=== PATIENT | female | born 1985 | race Caucasian/White ===

== ENCOUNTER 2016-04-26 10:08 | Emergency (ER) | payer OTHER ==
--- NOTE | 2016-04-26 11:35 | ER Document Report ---
ED General - General Information source: Patient TRAVEL OUTSIDE OF THE U.S. IN LAST 30 DAYS: No - HPI Patient complains to provider of: Endometriosis Pain Onset: This morning Associated symptoms: None - General Chief Complaint: Pelvic Pain Stated Complaint: PELVIC PAIN Notes: Patient is a 30-year-old female presenting to the emergency department concerned of endometriosis pain. Patient was diagnosed 10 years ago with endometriosis, and she has recently moved to [place] from [place] running out of her medicine. Patient takes Ultram for her pain. Patient is scheduled to see [facility] in April. Patient was able to get twice after laparoscopic surgery 3 years ago, and she has 2 healthy children 14 months apart. Patient has been trying to get again ever since, and she finally did get , but she had a miscarriage one and a half months ago. Patient denies having any history of seizures. ([employer]) - Related Data Allergies/Adverse Reactions: No Known Allergies Allergy (Unverified 04/26/16 11:14) Past Medical History - General Information source: Patient - Social History Smoking Status: Never Smoker Chew tobacco use (# tins/day): No Lives with: Family Family History: Reviewed & Not Pertinent Patient has suicidal ideation: No Patient has homicidal ideation: No Renal/ Medical History: Reports: Other - Endometriosis Past Surgical History: Reports: Other - Laparoscopic surgery for endometriosis Review of Systems - Review of Systems Constitutional: No symptoms reported EENT: No symptoms reported Cardiovascular: No symptoms reported Respiratory: No symptoms reported Gastrointestinal: No symptoms reported Genitourinary: No symptoms reported Female Genitourinary: See HPI, Heavy/abnormal periods - Endometrial Pain Musculoskeletal: No symptoms reported Skin: No symptoms reported Hematologic/Lymphatic: No symptoms reported Neurological/Psychological: No symptoms reported -: Yes All other systems reviewed and negative Physical Exam - Vital signs Interpretation: Normal - General General appearance: Appears well, Alert - HEENT Head: Normocephalic, Atraumatic Eyes: Normal Pupils: PERRL - Respiratory Respiratory status: No respiratory distress Chest status: Nontender Breath sounds: Normal Chest palpation: Normal - Cardiovascular Rhythm: Regular Heart sounds: Normal auscultation Murmur: No - Abdominal Inspection: Normal Distension: No distension Bowel sounds: Normal Tenderness: Nontender Organomegaly: No organomegaly - Back Back: Normal, Nontender - Extremities General upper extremity: Normal inspection, Nontender, Normal color, Normal ROM , Normal temperature General lower extremity: Normal inspection, Nontender, Normal color, Normal ROM , Normal temperature, Normal weight bearing - Neurological Neuro grossly intact: Yes Cognition: Normal Orientation: AAOx4 Adri[place] Coma Scale Eye Opening: Spontaneous [place] Coma Scale Verbal: Oriented [place] Coma Scale Motor: Obeys Commands [place] Coma Scale Total: 15 Speech: Normal - Psychological Associated symptoms: Normal affect, Normal mood - Skin Skin Temperature: Warm Skin Moisture: Dry Skin Color: Normal Course - Re-evaluation Re-evalutation: 04/26/16 13:01 I personally performed the services described in the documentation, reviewed and edited the documentation which was dictated to my scribe in my presence, and it accurately records my words and actions. Elroy seen and evaluated has a long-standing history of endometriosis recently moved here has been taking Ultram intermittently for a couple years. Says it accept when she gets on her menstrual cycle which she is on. States that they normally give her Ultram she does have an appointment here in [place] on the 18 of this month. She denies any heavy or bleeding than usual is not no urinary tract infection no acute abdominal guarding rebound rigidity. I'm comfortable giving her a one-time prescription for Ultram to get her through return appointment as she is not an abuser and its appropriate use of the medication. She does not have a history of a seizure disorder we'll DC follow up with ENVIRONMENTAL FIELD TEAM MEMBER as scheduled and discuss reasons for ED return sooner ( [facility]ABIO CAT) - Laboratory Laboratory results interpreted by me: 04/26/16 11:35 Urine Blood LARGE H (FABIO CAT) Discharge - Discharge Clinical Impression: Pelvic pain, History of endometriosis Condition: Stable Disposition: HOME, SELF-CARE Instructions: Pelvic Pain ([facility]) Prescriptions: Tramadol HCl [Ultram 50 mg Tablet] 50 mg PO Q4HP PRN #12 tab PRN Reason: Referrals: NATALIE HELMS MD [Primary Care Provider] - Follow up as needed (As scheduled return to emergency from for increasing worsening or new symptoms)
[2016-04-26 11:50] LABS: APPEARANCE,URINE CLEAR; BILIRUBIN,URINE NEGATIVE (NEGATIVE); GLUCOSE, URINE NEGATIVE (NEGATIVE); KETONES,URINE NEGATIVE (NEGATIVE); LEUKOCYTE ESTERASE,URINE NEGATIVE (NEGATIVE); NITRITE,URINE NEGATIVE (NEGATIVE); PROTEIN,URINE NEGATIVE (NEGATIVE); URINE SPECIFIC GRAVITY 1.009; UROBILINOGEN,URINE NEGATIVE mg/dL (<2.0)
[2016-04-26 13:13] VITALS: BP 130/65
== END 2016-04-26 13:13 | disposition home or self-care (01) ==
LOC: ER 10:08
DX: N80.9 Endometriosis, unspecified (principal); R10.2 Pelvic and perineal pain; Z98.890 Other specified postprocedural states; Z87.59 Personal history of other complications of pregnancy, childbirth and the puerperium
CPT/HCPCS: 81001; 81025; 99284

== ENCOUNTER 2016-07-13 07:46 | Emergency (ER) | payer OTHER ==
[2016-07-13] MEDS ORDERED: NORMAL SALINE 1000 ML 1,000 ML IV ONE ×2 (08:19→09:31)
[2016-07-13] MEDS ORDERED: DIPHENHYDRAMINE HCL 50 MG/ML VIAL IV ONE (08:19)
--- NOTE | 2016-07-13 08:20 | ER Document Report ---
ED GI/ - General Chief Complaint: Nausea/Vomiting Stated Complaint: VOMITING Mode of Arrival: Ambulatory Information source: Patient Notes: Patient is currently about 6 weeks but has not had ultrasound to confirm the . Patient is . Patient reports nausea and vomiting for the past 10 days and reports lower pelvic pain since about 3:30 today. Patient denies any urinary symptoms, vaginal bleeding, or vaginal discharge. Patient is concerned that she is losing weight and is dehydrated. TRAVEL OUTSIDE OF THE U.S. IN LAST 30 DAYS: No - HPI Patient complains to provider of: Pelvic pain, , Vomiting. No: Diarrhea , Vaginal discharge Onset: Other - 10 days Timing/Duration: Persistent Quality of pain: Cramping Pain Level: 3 Location: Pelvis Vaginal bleeding (Compared to normal period): None Sexual history: Active Associated symptoms: Loss of appetite, Nausea, Vomiting. denies: Diarrhea, Dysuria, Fever, Urinary hesitancy, Urinary frequency, Urinary retention, Urinary urgency Exacerbated by: Denies Relieved by: Denies Similar symptoms previously: Yes Recently seen / treated by doctor: No - Related Data Allergies/Adverse Reactions: amoxicillin Allergy (Verified 07/13/16 07:54) Past Medical History - General Information source: Patient Last Menstrual Period: 6 weeks - Social History Smoking Status: Never Smoker Chew tobacco use (# tins/day): No Frequency of alcohol use: None Drug Abuse: None Occupation: none Lives with: Family Family History: Reviewed & Not Pertinent Patient has suicidal ideation: No Patient has homicidal ideation: No Renal/ Medical History: Reports: Hx Kidney Stones, Other - Endometriosis. Denies: Hx Peritoneal Dialysis Past Surgical History: Reports: Hx Cardiac Surgery - Cardiac ablation, Other - Laparoscopic surgery for endometriosis Review of Systems - Review of Systems Constitutional: No symptoms reported. denies: Fever, Recent illness EENT: No symptoms reported Cardiovascular: No symptoms reported. denies: Chest pain Respiratory: No symptoms reported. denies: Cough, Short of breath Gastrointestinal: Abdominal pain, Nausea, Vomiting. denies: Diarrhea Genitourinary: No symptoms reported. denies: Dysuria, Flank pain Female Genitourinary: . denies: Vaginal discharge, Vaginal bleeding Musculoskeletal: No symptoms reported. denies: Back pain Skin: No symptoms reported Hematologic/Lymphatic: No symptoms reported Neurological/Psychological: No symptoms reported Physical Exam - Vital signs Vitals: Temp Pulse Resp BP Pulse Ox 98.7 F 118 H 20 101/67 100 07/13/16 07:50 07/13/16 07:50 07/13/16 07:50 07/13/16 07:50 07/13/16 07:50 - General General appearance: Appears well, Alert In distress: None - HEENT Head: Normocephalic, Atraumatic Eyes: Normal Conjunctiva: Normal Nasal: Normal Mouth/Lips: Normal Mucous membranes: Dry Pharynx: Normal Neck: Normal, Supple. No: Lymphadenopathy - Respiratory Respiratory status: No respiratory distress Chest status: Nontender Breath sounds: Normal. No: Rales, Rhonchi, Stridor, Wheezing Chest palpation: Normal - Cardiovascular Rhythm: Tachycardia Heart sounds: S1 appreciated, S2 appreciated Murmur: No - Abdominal Inspection: Normal Distension: No distension Bowel sounds: Normal Tenderness: Tender - Generalized tenderness - Back Back: Normal, Nontender. No: CVA tenderness - Extremities General upper extremity: Normal inspection, Normal strength General lower extremity: Normal inspection, Normal strength - Neurological Neuro grossly intact: Yes Cognition: Normal Orientation: AAOx4 [place] Coma Scale Eye Opening: Spontaneous Adriane Coma Scale Verbal: Oriented Adriane Coma Scale Motor: Obeys Commands [place]ane Coma Scale Total: 15 - Psychological Associated symptoms: Normal affect, Normal mood - Skin Skin Temperature: Warm Skin Moisture: Dry Skin Color: Normal Course - Vital Signs Vital signs: Temp Pulse Resp BP Pulse Ox 99.0 F 103 H 20 96/60 L 100 07/13/16 13:26 07/13/16 13:26 07/13/16 13:26 07/13/16 13:26 07/13/16 13:26 - Laboratory Result Diagrams: 07/13/16 09:25 07/13/16 09:25 Laboratory results interpreted by me: 07/13/16 07/13/16 07/13/16 08:40 09:25 09:25 WBC 13.8 H Seg Neuts % (Manual) 94 H Band Neutrophils % 2 L Lymphocytes % (Manual) 2 L Monocytes % (Manual) 2 L Abs Neuts (Manual) 13.2 H Abs Lymphs (Manual) 0.3 L Glucose 113 H Total Bilirubin 1.6 H Beta HCG, Quant 048593.00 H Urine Ketones TRACE H Ur Leukocyte Esterase TRACE H Labs- Entire Visit 07/13/16 07/13/16 07/13/16 08:40 09:25 09:25 WBC 13.8 H RBC 4.80 Hgb 14.4 Hct 41.8 MCV 87 MCH 29.9 MCHC 34.4 RDW 13.4 Plt Count 183 Total Counted 100 Seg Neutrophils % Not Reportable Seg Neuts % (Manual) 94 H Band Neutrophils % 2 L Lymphocytes % Not Reportable Lymphocytes % (Manual) 2 L Monocytes % Not Reportable Monocytes % (Manual) 2 L Eosinophils % Not Reportable Eosinophils % (Manual) 0 Basophils % Not Reportable Basophils % (Manual) 0 Absolute Neutrophils Not Reportable Abs Neuts (Manual) 13.2 H Absolute Lymphocytes Not Reportable Abs Lymphs (Manual) 0.3 L Absolute Monocytes Not Reportable Abs Monocytes (Manual) 0.3 Absolute Eosinophils Not Reportable Absolute Eos (Manual) 0.0 Absolute Basophils Not Reportable Abs Basophils (Manual) 0.0 Toxic Granulation SLIGHT Toxic Vacuolation PRESENT Platelet Comment ADEQUATE RBC Morph Comment NORMO-CYTIC/CHROMIC Sodium 143.1 Potassium 4.1 Chloride 104 Carbon Dioxide 23 Anion Gap 16 BUN 15 Creatinine 0.60 Est GFR ( Amer) > 60 Est GFR (Non-Af Amer) > 60 Glucose 113 H Calcium 10.1 Total Bilirubin 1.6 H Direct Bilirubin 0.0 AST 26 ALT 41 Alkaline Phosphatase 70 Total Protein 7.8 Albumin 4.7 Lipase 114.2 Beta HCG, Quant 109978.00 H Total Beta HCG POSITIVE Urine Color YELLOW Urine Appearance SLIGHTLY-CLOUDY Urine pH 5.0 Ur Specific [place] 1.030 Urine Protein NEGATIVE Urine Glucose (UA) NEGATIVE Urine Ketones TRACE H Urine Blood NEGATIVE Urine Nitrite NEGATIVE Urine Bilirubin NEGATIVE Urine Urobilinogen NEGATIVE Ur Leukocyte Esterase TRACE H Urine WBC (Auto) 2 Urine RBC (Auto) 2 U Hyaline Cast (Auto) 1 Urine Bacteria (Auto) TRACE Squamous Epi Cells Auto 5 Urine Mucus (Auto) MOD Urine Ascorbic Acid NEGATIVE Blood Type Rhogam Indicated 07/13/16 09:25 WBC RBC Hgb Hct MCV MCH MCHC RDW Plt Count Total Counted Seg Neutrophils % Seg Neuts % (Manual) Band Neutrophils % Lymphocytes % Lymphocytes % (Manual) Monocytes % Monocytes % (Manual) Eosinophils % Eosinophils % (Manual) Basophils % Basophils % (Manual) Absolute Neutrophils Abs Neuts (Manual) Absolute Lymphocytes Abs Lymphs (Manual) Absolute Monocytes Abs Monocytes (Manual) Absolute Eosinophils Absolute Eos (Manual) Absolute Basophils Abs Basophils (Manual) Toxic Granulation Toxic Vacuolation Platelet Comment RBC Morph Comment Sodium Potassium Chloride Carbon Dioxide Anion Gap BUN Creatinine Est GFR ( Amer) Est GFR (Non-Af Amer) Glucose Calcium Total Bilirubin Direct Bilirubin AST ALT Alkaline Phosphatase Total Protein Albumin Lipase Beta HCG, Quant Total Beta HCG Urine Color Urine Appearance Urine pH Ur Specific [place] Urine Protein Urine Glucose (UA) Urine Ketones Urine Blood Urine Nitrite Urine Bilirubin Urine Urobilinogen Ur Leukocyte Esterase Urine WBC (Auto) Urine RBC (Auto) U Hyaline Cast (Auto) Urine Bacteria (Auto) Squamous Epi Cells Auto Urine Mucus (Auto) Urine Ascorbic Acid Blood Type O POSITIVE Rhogam Indicated RHOGAM NOT INDICATED - Diagnostic Test Radiology reviewed: Reports reviewed Discharge - Discharge Clinical Impression: Intrauterine Vomiting Qualifiers: Vomiting type: unspecified Vomiting Intractability: non-intractable Nausea presence: with nausea Qualified Code(s): R11.2 - Nausea with vomiting, unspecified UTI (urinary tract infection) Qualifiers: Urinary tract infection type: site unspecified Hematuria presence: without hematuria Qualified Code(s): N39.0 - Urinary tract infection, site not specified Condition: Stable Disposition: HOME, SELF-CARE Instructions: Urinary Tract Infection ([facility]), Nitrofurantoin ([facility]), Vomiting ( [facility]), Intravenous (IV) Fluids ([facility]), Pelvic Pain in ([facility]) Additional Instructions: Return immediately for any new or worsening symptoms Followup with your primary care provider, call tomorrow to make a followup appointment Follow-up with your powered bridge specialist for further evaluation. Urine culture is pending, we will call if you need any different treatment You may take Benadryl [id number] as directed to help with your nausea symptoms Prescriptions: Nitrofurantoin/Nitrofuran Mac [Macrobid 100 mg Capsule] 100 mg PO BID #10 capsule
[2016-07-13 09:18] LABS: APPEARANCE,URINE SLIGHTLY-CLOUDY; BILIRUBIN,URINE NEGATIVE (NEGATIVE); GLUCOSE, URINE NEGATIVE (NEGATIVE); KETONES,URINE TRACE mg/dL (NEGATIVE); LEUKOCYTE ESTERASE,URINE TRACE (NEGATIVE); NITRITE,URINE NEGATIVE (NEGATIVE); PROTEIN,URINE NEGATIVE (NEGATIVE); UROBILINOGEN,URINE NEGATIVE mg/dL (<2.0)
[2016-07-13 09:53] LABS: HEMATOCRIT 41.8 % (36.0-47.0); HEMOGLOBIN 14.4 g/dL (12.0-15.5); HGB HCT DIFFERENCE 1.4; MEAN CORPUSCULAR HEMOGLOBIN 29.9 pg (27.0-33.4); MEAN CORPUSCULAR HGB CONC 34.4 g/dL (32.0-36.0); MEAN CORPUSCULAR VOLUME 87 fl (80-97); RED CELL DISTRIBUTION WIDTH 13.4 % (11.5-14.0); WHITE BLOOD COUNT 13.8 10^3/uL (4.0-10.5)
[2016-07-13 10:10] LABS: BAND NEUTROPHILS % (MANUAL) 2 % (3-5); BASOPHILS % (MANUAL) 0 % (0-2); EOSINOPHILS % (MANUAL) 0 % (0-6); LYMPHOCYTES % (MANUAL) 2 % (13-45); RBC MORPHOLOGY COMMENT NORMO-CYTIC/CHROMIC; TOTAL CELLS COUNTED 100; TOXIC GRANULATION SLIGHT; TOXIC VACUOLATION PRESENT
[2016-07-13 10:11] LABS: ALANINE AMINOTRANSFERASE 41 U/L (9-52); ALBUMIN 4.7 g/dL (3.5-5.0); ALKALINE PHOSPHATASE 70 U/L (38-126); ANION GAP 16 (5-19); ASPARTATE AMINO TRANSFERASE 26 U/L (14-36); BILIRUBIN,TOTAL 1.6 mg/dL (0.2-1.3); BLOOD UREA NITROGEN 15 mg/dL (7-20); CALCIUM 10.1 mg/dL (8.4-10.2); CARBON DIOXIDE 23 mmol/L (22-30); CHLORIDE 104 mmol/L (98-107); GLUCOSE 113 mg/dL (75-110); LIPASE 114.2 U/L (23-300); POTASSIUM 4.1 mmol/L (3.6-5.0); SODIUM 143.1 mmol/L (137-145); TOTAL PROTEIN 7.8 g/dL (6.3-8.2)
[2016-07-13 13:29] VITALS: BP 96/60
== END 2016-07-13 13:40 | disposition home or self-care (01) ==
LOC: ER 07:46
DX: N39.0 Urinary tract infection, site not specified (principal); R11.2 Nausea with vomiting, unspecified; Z3A.01 Less than 8 weeks gestation of pregnancy
CPT/HCPCS: 99284; 96374; 86900; 86901; 36415; 87086; 84702; 83690; 85025; 80053; 81001; 76817; J1200; J7030

== ENCOUNTER 2017-02-14 18:24 | Outpatient (CLI) | payer OTHER ==
[2017-02-14 18:57] LABS: APPEARANCE,URINE CLEAR; BILIRUBIN,URINE NEGATIVE (NEGATIVE); GLUCOSE, URINE NEGATIVE (NEGATIVE); KETONES,URINE NEGATIVE (NEGATIVE); LEUKOCYTE ESTERASE,URINE SMALL (NEGATIVE); NITRITE,URINE NEGATIVE (NEGATIVE); PROTEIN,URINE NEGATIVE (NEGATIVE); URINE SPECIFIC GRAVITY 1.006; UROBILINOGEN,URINE NEGATIVE mg/dL (<2.0)
[2017-02-14 19:13] LABS: URINE BARBITURATES SCREEN NEGATIVE; URINE METHADONE SCREEN NEGATIVE; URINE OPIATES LOW NEGATIVE; URINE PHENCYCLIDINE SCREEN NEGATIVE
--- NOTE | 2017-02-14 19:35 | Non Stress Test Report ---
Non Stress Test Datetime Report Generated by CPN: 02/14/2017 19:35 DEMOGRAPHIC EGA NST: 38.1 INDICATION Indication for Study: Ordered by Provider MONITORING Monitor Explained: Monitor Explained; Test Explained; Patient Verbalized Understanding Time on Monitor: 02/14/2017 18:39 Time off Monitor: 02/14/2017 19:30 NST Duration: 51 NST INTERVENTIONS NST Interventions: None Physician Notified NST: Dr. Ricketts BABY A: [id number] BABY A Movement : Present Contraction Frequency : 2-9 FHR Baseline : 150 Accelerations : 15X15 Decelerations : None Variability : Moderate 6-25bpm NST Review: Meets Criteria for Reactive NST NST Review and Verified By : CLAUDIO Saunders Results: Reactive NST REPORT Report Trigger: Send Report
== END 2017-02-14 19:46 | disposition home or self-care (01) ==
LOC: LC 18:24
PROVIDERS: ATTEND Obstetrics & Gynecology
PROC: 4A1HXCZ Monitoring of Products of Conception, Cardiac Rate, External Approach (ICD-10-PCS; principal; 2017-02-14)
DX: O47.1 False labor at or after 37 completed weeks of gestation (principal); Z3A.38 38 weeks gestation of pregnancy
CPT/HCPCS: 59025; 80307; 81005

== ENCOUNTER 2017-04-24 09:35 | Emergency (ER) | payer OTHER ==
[2017-04-24 09:40] VITALS: BP 115/61
[2017-04-24] MEDS ORDERED: NAPROXEN 250 MG TABLET PO ONE (10:37)
[2017-04-24 11:31] LABS: APPEARANCE,URINE CLEAR; BILIRUBIN,URINE NEGATIVE (NEGATIVE); COLOR,URINE YELLOW; GLUCOSE, URINE NEGATIVE (NEGATIVE); KETONES,URINE NEGATIVE (NEGATIVE); LEUKOCYTE ESTERASE,URINE NEGATIVE (NEGATIVE); NITRITE,URINE NEGATIVE (NEGATIVE); PROTEIN,URINE NEGATIVE (NEGATIVE); URINE SPECIFIC GRAVITY 1.011; UROBILINOGEN,URINE NEGATIVE mg/dL (<2.0)
--- NOTE | 2017-04-24 11:49 | ER Document Report ---
HPI - HPI Patient complains to provider of: pelvic cramping Onset: Yesterday Onset/Duration: Gradual Quality of pain: Cramping Pain Level: 4 Context: Patient presents complaining of lower pelvic cramping that she attributes to endometriosis. Patient states she just recently started her period and is currently 3 months . Patient states this is her first period since delivering her child. Patient states that her FLEET MECHANIC is planning to have a procedure once she has healed after having her baby to definitively manage her endometriosis. Patient denies any fever, nausea, vomiting or diarrhea. Patient denies any urinary symptoms. Patient does complain of low back pain but attributes this to her endometriosis and her menses. Patient states that typically her doctor will put her on naproxen and tramadol to treat her pain symptoms. Patient states that she does take Lexapro for anxiety and states that her doctor has put her on tramadol with the Lexapro in the past. Associated Symptoms: Other - Pelvic cramping, low back pain. denies: Fever, Nausea, Vomiting Exacerbated by: Denies Relieved by: Denies Similar symptoms previously: Yes Recently seen / treated by doctor: No - ROS ROS below otherwise negative: Yes Systems Reviewed and Negative: Yes All other systems reviewed and negative - CONSTITUTIONAL Constitutional: DENIES: Fever, Chills - EENT EENT: DENIES: Sore Throat, Ear Pain, Eye problems - CARDIOVASCULAR Cardiovascular: DENIES: Chest pain - RESPIRATORY Respiratory: DENIES: Trouble Breathing, Coughing - GASTROINTESTINAL Gastrointestinal: REPORTS: Abdominal Pain - Lower pelvic. DENIES: Nausea, Patient vomiting, Diarrhea, Black / Bloody Stools - URINARY Urinary: DENIES: Dysuria, Urgency, Frequency - REPRODUCTIVE Reproductive: DENIES: : - MUSCULOSKELETAL Musculoskeletal: REPORTS: Back Pain. DENIES: Extremity pain Past Medical History - General Information source: Patient - Social History Smoking Status: Never Smoker Chew tobacco use (# tins/day): No Frequency of alcohol use: None Drug Abuse: None Occupation: none Lives with: Family Family History: Reviewed & Not Pertinent Patient has suicidal ideation: No Patient has homicidal ideation: No Renal/ Medical History: Reports: Hx Kidney Stones, Other - Endometriosis. Denies: Hx Peritoneal Dialysis Psychiatric Medical History: Reports: Hx Anxiety Past Surgical History: Reports: Hx Cardiac Surgery - Cardiac ablation, Hx Kidney (Renal Surgery), Other - Laparoscopic surgery for endometriosis Vertical Provider Document - CONSTITUTIONAL Agree With Documented VS: Yes Exam Limitations: No Limitations General Appearance: WD/WN, No Apparent Distress - INFECTION CONTROL TRAVEL OUTSIDE OF THE [place] IN LAST 30 DAYS: No - HEENT HEENT: Atraumatic, Normocephalic - NECK Neck: Normal Inspection, Supple - RESPIRATORY Respiratory: Breath Sounds Normal, No Respiratory Distress O2 Sat by Pulse Oximetry: 100 - CARDIOVASCULAR Cardiovascular: Regular Rate, Regular Rhythm - GI/ABDOMEN Gastrointestinal: Abdomen Soft, Abdomen Tender - Suprapubic. negative: Abdominal Guarding - BACK Back: Abnormal Inspection - Lower lumbar paraspinal tenderness, no midline tenderness, step-off or deformity. negative: CVA Tenderness-Right, CVA Tenderness-Left - MUSCULOSKELETAL/EXTREMETIES Musculoskeletal/Extremeties: SAHIL MONTESINOS - NEURO Level of Consciousness: Awake, Alert, Appropriate Motor/Sensory: No Motor Deficit - DERM Integumentary: Warm, Dry, No Rash Course - Re-evaluation Re-evalutation: 04/24/17 11:48 Controlled substance database reviewed. Patient advised that only a short course of pain medication will be written and that she will need to see her primary doctor or FLEET MECHANIC for any additional refills of her medication. Patient with some hematuria noted on urinalysis. Patient's urinalysis was a clean catch specimen. Suspect that patient has contaminant from her menses. No concern for UTI at this time. - Vital Signs Vital signs: Temp Pulse Resp BP Pulse Ox 98.6 F 113 H 20 115/61 100 04/24/17 09:40 04/24/17 09:40 04/24/17 09:40 04/24/17 09:40 04/24/17 09:40 - Laboratory Laboratory results interpreted by me: 04/24/17 10:45 Urine Blood LARGE H 04/24/17 21:17 Labs- Entire Visit 04/24/17 10:45 Urine Color YELLOW Urine Appearance CLEAR Urine pH 6.0 Ur Specific [place] 1.011 Urine Protein NEGATIVE Urine Glucose (UA) NEGATIVE Urine Ketones NEGATIVE Urine Blood LARGE H Urine Nitrite NEGATIVE Urine Bilirubin NEGATIVE Urine Urobilinogen NEGATIVE Ur Leukocyte Esterase NEGATIVE Urine WBC (Auto) 3 Urine RBC (Auto) 111 Squamous Epi Cells Auto 1 Urine Mucus (Auto) RARE Urine Ascorbic Acid NEGATIVE Urine HCG, Qual NEGATIVE Discharge - Discharge Clinical Impression: Pelvic pain, Dysmenorrhea, History of endometriosis Condition: Stable Disposition: HOME, SELF-CARE Instructions: Anti-Inflammatory Medication ([facility]), Dysmenorrhea ([facility]), Endometriosis ([facility]), Oral Narcotic Medication ([facility]) Additional Instructions: Return immediately for any new or worsening symptoms Followup with your primary care provider, call tomorrow to make a followup appointment Prescriptions: Acetaminophen with Codeine [Acetaminophen-Cod #3 Tablet] 1 each PO Q6 PRN #8 tablet PRN Reason: Naproxen [Naprosyn 250 Nmg Tablet] 1 tab PO BID #14 tablet Referrals: [facility] [Provider Group] - Follow up tomorrow
== END 2017-04-24 11:55 | disposition home or self-care (01) ==
LOC: ER 09:35
DX: N80.9 Endometriosis, unspecified (principal); N94.6 Dysmenorrhea, unspecified; R10.2 Pelvic and perineal pain; M54.5 Low back pain; F41.9 Anxiety disorder, unspecified; Z79.899 Other long term (current) drug therapy; Z87.442 Personal history of urinary calculi
CPT/HCPCS: 81001; 81025; 87086; 99284

== ENCOUNTER 2017-09-19 11:45 | Emergency (ER) | payer OTHER ==
--- NOTE | 2017-09-19 12:05 | ER Document Report ---
ED General - General Chief Complaint: Abdominal Cramping Stated Complaint: ABDOMINAL PAIN Time Seen by Provider: 09/19/17 11:58 Notes: 32-year-old female PMH endometriosis here with complaints of lower abdominal and back cramping that started yesterday when her period started. She states that this is just like her usual endometriosis pain crisis whenever she has her menses. She has been using tramadol however she does not like the way it makes her feel and she has an 8-month-old at home so she cannot be sleepy. She reports that she is here only for another medication such as Tylenol with codeine that has worked very well for her. She denies any fevers chills dysuria but did have some nausea and vomiting prior to arrival. TRAVEL OUTSIDE OF THE [place] IN LAST 30 DAYS: No - Related Data Allergies/Adverse Reactions: amoxicillin Allergy (Mild, Verified 09/19/17 11:46) Urticaria Past Medical History - Social History Smoking Status: Unknown if Ever Smoked Family History: Reviewed & Not Pertinent Renal/ Medical History: Reports: Hx Kidney Stones. Denies: Hx Peritoneal Dialysis Psychiatric Medical History: Reports: Hx Anxiety Past Surgical History: Reports: Hx Cardiac Surgery - Cardiac ablation, Hx Kidney (Renal Surgery), Other - Laparoscopic surgery for endometriosis Review of Systems - Review of Systems Notes: See history of present illness for pertinent positive review of systems; otherwise all review of systems have been reviewed and are negative Physical Exam - Notes Notes: PHYSICAL EXAMINATION: GENERAL: Well-appearing nontoxic and in no acute distress. HEAD: Atraumatic, normocephalic. EYES: Pupils equal round and reactive to light, extraocular movements intact, sclera anicteric, conjunctiva are normal. ENT: nares patent, oropharynx clear without exudates. Moist mucous membranes. NECK: Normal range of motion, supple without lymphadenopathy LUNGS: CTAB and equal. No wheezes rales or rhonchi. HEART: Mildly tachycardic rate with regular rhythm without murmurs ABDOMEN: Soft, minimal to mild left/right lower quadrant and suprapubic tenderness with no peritoneal signs. Minimal bilateral CVA TTP. No facial grimacing/wincing upon palpation. No guarding, no rebound. EXTREMITIES: Normal range of motion, no pitting edema. No cyanosis. NEUROLOGICAL: Cranial nerves grossly intact. Normal sensory/motor exams. PSYCH: Normal mood, normal affect. SKIN: Warm, Dry, normal turgor, no rashes or lesions noted Course - Re-evaluation Re-evalutation: 09/19/17 12:08 MEDICAL DECISION MAKING: Concern for endometriosis pain flare Cannot rule out torsion cyst PID without diagnostic workup She just wants a prescription and does not want to stay for pelvic exam or other diagnostic workup Discussed with her she has high heart rate but states she is in pain I discussed with her she could return anytime if she changed her mind regarding diagnostic workup Will prescribe Tylenol with codeine and meloxicam Patient understands and agrees to the plan of care Discharge - Discharge Clinical Impression: Abdominal cramping Condition: Good Disposition: HOME, SELF-CARE Additional Instructions: You were seen in the emergency department at [facility]. You declined a diagnostic workup including pelvic exam (you may return if you change your mind). Use the prescribed medication as needed for your symptoms. The meloxicam will NOT make you sleepy. The Tylenol with codeine WILL (possibly ) make you sleepy so be sure not to operate any heavy/dangerous machinery if this medication is in your bloodstream. Please followup with your primary physician and/or VULCANIZED FIBER UNIT OPERATOR in the next few days for further management/evaluation. Please return to the emergency department for worsening of symptoms or any symptom that you deem to be concerning or life-threatening. Thank you for allowing us to be part of your care. Prescriptions: Acetaminophen with Codeine [Tylenol #3 Tablet] 1 each PO Q6HP PRN #10 tablet PRN Reason: Meloxicam 7.5 mg PO DAILYP PRN #10 tablet PRN Reason:
== END 2017-09-19 12:07 | disposition home or self-care (01) ==
LOC: ER 11:45
DX: R10.30 Lower abdominal pain, unspecified (principal); M54.9 Dorsalgia, unspecified; Z88.0 Allergy status to penicillin
CPT/HCPCS: 99283

== ENCOUNTER 2019-04-19 11:26 | Emergency (ER) | payer OTHER ==
[2019-04-19] MEDS ORDERED: TRAMADOL HCL 50 MG TABLET PO ONE ×2 (11:37→13:20)
--- NOTE | 2019-04-19 11:39 | ER Document Report ---
ED Medical Screen (RME) - General Chief Complaint: Pelvic Pain Stated Complaint: PELVIC PAIN Time Seen by Provider: 04/19/19 11:32 Primary Care Provider: JOHN WYLIE MD [Primary Care Provider] - Follow up as needed Mode of Arrival: Ambulatory Information source: Patient Notes: 33-year-old female with history of endometriosis presents today with complaints of lower abdominal pain typical of her endometriosis. She reports she started her menses yesterday. She took ibuprofen naproxen and it did not relieve the pain so she took Midol. She did not realize Midol had caffeine in it. She reports she is sensitive to caffeine and now her heart feels like it is racing her left arm is tingling. She denies fever vomiting diarrhea. She also reports that her provider will order her tramadol every now and then for pain that is resolved with ibuprofen or naproxen. She does not have any tramadol currently. I have greeted and performed a rapid initial assessment of this patient. A comprehensive ED assessment and evaluation of the patient, analysis of test results and completion of the medical decision making process will be conducted by additional ED providers. TRAVEL OUTSIDE OF THE [place] IN LAST 30 DAYS: No - Related Data Allergies/Adverse Reactions: amoxicillin Allergy (Mild, Verified 04/19/19 11:32) Urticaria Past Medical History Renal/ Medical History: Reports: Hx Kidney Stones. Denies: Hx Peritoneal Dialysis Psychiatric Medical History: Reports: Hx Anxiety Past Surgical History: Reports: Hx Cardiac Surgery - Cardiac ablation, Hx Kidney (Renal Surgery), Other - Laparoscopic surgery for endometriosis Physical Exam - Vital signs Vitals: Temp Pulse Resp BP Pulse Ox 97.9 F 100 20 131/83 H 97 04/19/19 11:29 04/19/19 11:29 04/19/19 11:29 04/19/19 11:29 04/19/19 11:29 Course - Vital Signs Vital signs: Temp Pulse Resp BP Pulse Ox 97.9 F 100 20 131/83 H 97 04/19/19 11:29 04/19/19 11:29 04/19/19 11:29 04/19/19 11:29 04/19/19 11:29 Doctor's Discharge - Discharge Referrals: JOHN WYLIE MD [Primary Care Provider] - Follow up as needed
[2019-04-19 12:08] LABS: ABSOLUTE EOSINOPHILS # (AUTO) 0.1 10^3/uL (0.0-0.6); ABSOLUTE LYMPHOCYTES (AUTO) 1.6 10^3/uL (0.5-4.7); ABSOLUTE MONOCYTES (AUTO) 0.5 10^3/uL (0.1-1.4); ABSOLUTE NEUT (AUTO) 5.2 10^3/uL (1.7-8.2); BASOPHILS % (AUTO) 0.4 % (0-2); HEMATOCRIT 39.4 % (36.0-47.0); HEMOGLOBIN 13.4 g/dL (12.0-15.5); LYMPHOCYTES % (AUTO) 21.5 % (13-45); MEAN CORPUSCULAR HEMOGLOBIN 31.2 pg (27.0-33.4); MEAN CORPUSCULAR HGB CONC 34.1 g/dL (32.0-36.0); MEAN CORPUSCULAR VOLUME 92 fl (80-97); MONOCYTES % (AUTO) 7.2 % (3-13); PLATELET COUNT 220 10^3/uL (150-450); RED CELL DISTRIBUTION WIDTH 13.5 % (11.5-14.0); SEGMENTED NEUTROPHILS % (AUTO) 69.9 % (42-78); TOTAL CELLS COUNTED % (AUTO) 100 %; WHITE BLOOD COUNT 7.4 10^3/uL (4.0-10.5)
[2019-04-19 12:21] LABS: APPEARANCE,URINE CLEAR; BILIRUBIN,URINE NEGATIVE (NEGATIVE); COLOR,URINE YELLOW; GLUCOSE, URINE NEGATIVE (NEGATIVE); KETONES,URINE NEGATIVE (NEGATIVE); LEUKOCYTE ESTERASE,URINE NEGATIVE (NEGATIVE); NITRITE,URINE NEGATIVE (NEGATIVE); PROTEIN,URINE NEGATIVE (NEGATIVE); UROBILINOGEN,URINE NEGATIVE mg/dL (<2.0)
[2019-04-19 12:29] LABS: ALBUMIN 4.7 g/dL (3.5-5.0); ALKALINE PHOSPHATASE 98 U/L (38-126); ANION GAP 10 (5-19); ASPARTATE AMINO TRANSFERASE 34 U/L (14-36); BILIRUBIN,DIRECT 0.1 mg/dL (0.0-0.4); BILIRUBIN,TOTAL 0.5 mg/dL (0.2-1.3); BLOOD UREA NITROGEN 16 mg/dL (7-20); CALCIUM 9.7 mg/dL (8.4-10.2); CARBON DIOXIDE 28 mmol/L (22-30); CHLORIDE 104 mmol/L (98-107); GLUCOSE 91 mg/dL (75-110); POTASSIUM 4.6 mmol/L (3.6-5.0); TOTAL PROTEIN 7.9 g/dL (6.3-8.2)
--- NOTE | 2019-04-19 13:26 | ER Document Report ---
ED GI/ - General Chief Complaint: Pelvic Pain Stated Complaint: PELVIC PAIN Time Seen by Provider: 04/19/19 11:32 Primary Care Provider: JOHN WYLIE MD [ACTIVE STAFF] - Follow up as needed Mode of Arrival: Ambulatory Notes: 33-year-old female with history of endometriosis presents to the emergency department with chief complaint of lower abdominal pain typical of her endometriosis. Patient started menses yesterday. Patient took naproxen and it did not relieve the pain so she took Midol which is atypical for her. She is not sure if she had a reaction to it because she is very sensitive to caffeine or it was also secondary to pain but she had the sensation of her heart racing a nd some left arm tingling. Denies fever or chills, denies nausea/vomiting/diarrhea. Of note after performing in [employer] aware search patient is regularly prescribed tramadol and is requesting tramadol as that does work for her. She received 1 dose in triage. TRAVEL OUTSIDE OF THE [place] IN LAST 30 DAYS: No - Related Data Allergies/Adverse Reactions: amoxicillin Allergy (Mild, Verified 04/19/19 11:32) Urticaria Home Medications: lexapro Past Medical History - General Information source: Patient Last Menstrual Period: 04/18/19 - Social History Smoking Status: Never Smoker Chew tobacco use (# tins/day): No Drug Abuse: None Family History: Reviewed & Not Pertinent Patient has suicidal ideation: No Patient has homicidal ideation: No Renal/ Medical History: Reports: Hx Kidney Stones. Denies: Hx Peritoneal Dialysis Psychiatric Medical History: Reports: Hx Anxiety Past Surgical History: Reports: Hx Breast Surgery, Hx Cardiac Surgery - Cardiac ablation, Hx Kidney (Renal Surgery), Other - Laparoscopic surgery for endometriosis Review of Systems - Review of Systems Constitutional: See HPI EENT: See HPI Cardiovascular: See HPI Respiratory: See HPI Gastrointestinal: See HPI Genitourinary: See HPI Female Genitourinary: No symptoms reported Musculoskeletal: No symptoms reported Skin: No symptoms reported Hematologic/Lymphatic: No symptoms reported Neurological/Psychological: See HPI Physical Exam - Vital signs Vitals: Temp Pulse Resp BP Pulse Ox 97.9 F 100 20 131/83 H 97 04/19/19 11:29 04/19/19 11:29 04/19/19 11:29 04/19/19 11:29 04/19/19 11:29 - Notes Notes: PHYSICAL EXAMINATION: Reviewed vital signs and charting by RN GENERAL: Alert, interacts well. No acute distress. HEAD: Normocephalic, atraumatic. EYES: Pupils equal and round. Extraocular movements intact. ENT: Oral mucosa moist, tongue midline. NECK: Full range of motion. Trachea midline. LUNGS: Clear to auscultation bilaterally, no wheezes, rales, or rhonchi. No respiratory distress. HEART: Regular rate and rhythm. No murmur ABDOMEN: soft, mild tenderness to palpation bilateral lower abdomen. No distention. Bowel sounds present EXTREMITIES: Moves all 4 extremities spontaneously. No edema, No cyanosis. PSYCH: Normal affect, normal mood. SKIN: Warm, dry, normal turgor. No rashes or lesions noted. Course - Re-evaluation Re-evalutation: 04/19/19 13:28 Patient is well-appearing in no acute distress, very pleasant. Patient states that she is starting to feel better. She is no longer tachycardic and EKG showed a normal sinus rhythm with a rate of 80, normal axis, no evidence of ST segment elevations or depressions, QTC 434. Lab work was all within normal limits and there is no evidence of UTI on urinalysis. Patient is requesting a single dose of tramadol to take home because there are no pharmacies open and she is requesting a small prescription of tramadol as she has run out and it was last filled on 02/13/2019. I did a [employer]CH[employer]IAN aware search and there are no concerning prescribing practices but she is regularly prescribed tramadol. After a lengthy discussion with her and clarifying the risks I am comfortable giving her a single dose to go home with so she has it for later for breakthrough pain. I clarified the risks of taking it while she is driving and adamantly discouraged her from doing so. She completely understands the risks of the sedative pro perties that she has been taking it for a long time. At this time patient is stable for discharge. - Vital Signs Vital signs: Temp Pulse Resp BP Pulse Ox 97.9 F 100 20 131/83 H 97 04/19/19 11:29 04/19/19 11:29 04/19/19 11:29 04/19/19 11:29 04/19/19 11:29 - Laboratory Result Diagrams: 04/19/19 11:54 04/19/19 11:54 Laboratory results interpreted by me: 04/19/19 04/19/19 11:54 11:54 Est GFR (MDRD) Non-Af 56 L Urine Blood SMALL H Discharge - Discharge Clinical Impression: Menstrual pain, Anxiety Condition: Good Disposition: HOME, SELF-CARE Additional Instructions: You were seen in the emergency department this afternoon for a rapid heart rate and some tingling down your arm. Your EKG was completely normal and, like you said, I agree that it might have been an anxiety component combined with pain after taking the Midol. Everything was reassuring with your labs. I have given you 1 dose of tramadol to take home since there are no pharmacies open today. I have also given you a short prescription for tramadol that you can get filled tomorrow unless you can find a pharmacy today. Please return to the emergency department if you have a severe panic attack that you cannot calm down from, you have severe shortness of breath, you have severe chest pain, you have intractable severe abdominal pain, or you have any other concerning symptoms. Referrals: JOHN WYLIE MD [ACTIVE STAFF] - Follow up as needed
[2019-04-19 13:44] VITALS: BP 128/80
--- NOTE | 2019-04-19 20:11 | EKG REPORT ---
SEVERITY:- NORMAL ECG - SINUS RHYTHM : Confirmed by: Shellie Wright MD 19-Apr-2019 20:10:33
== END 2019-04-19 13:42 | disposition home or self-care (01) ==
LOC: ER 11:26
DX: N94.6 Dysmenorrhea, unspecified (principal); F41.9 Anxiety disorder, unspecified; R10.2 Pelvic and perineal pain; R09.89 Other specified symptoms and signs involving the circulatory and respiratory systems; R20.2 Paresthesia of skin; Z88.0 Allergy status to penicillin
CPT/HCPCS: 36415; 80053; 81001; 81025; 85025; 93005; 93010; 99284